=== PATIENT | female | born 1950 | race Caucasian/White ===

== ENCOUNTER → 2017-05-15 | Outpatient (CLI) | payer OTHER ==
[~2017-05-15] MED LIST: ACYCLOVIR 400400 MG PO; CLONAZEPAM 1 MG1 M1 PO; DOXEPIN 10 MG C10 M1 PO; DOXEPIN 10 MG C10 MG PO; KLONOPIN1 MG PO; LEVOTHYROXIN0.125 M1 PO; LIDODERM 5%1 PATC1 TRANSDERM; MOBIC7.5 M1 PO; MOBIC7.5 MG PO; NEURONTIN 300300 M1 PO; PROBIOTIC1 EAC1 PO; PROBIOTIC1 EAC2 PO; SINGULAIR 10 MG10 M1 PO; SYNTHROID112 MCG PO; TESSALON200 MG PO; ZANTAC 150MG T150 MG PO; ZPAK PO
== END ==
LOC: M.RAD 11:45
DX: J06.9 Acute upper respiratory infection, unspecified (principal)

== ENCOUNTER → 2017-08-29 | Outpatient (CLI) | payer OTHER | LOC: M.RAD 12:56 | DX: M54.42 Lumbago with sciatica, left side (principal) ==